=== PATIENT | male | born 1985 | race Caucasian/White ===

== ENCOUNTER 2019-02-03 05:33 | Inpatient (IN) | payer MEDICAID ==
[2019-02-03] MEDS ORDERED: Acetaminophen 500 MG Tab PO ONE (05:45)
[2019-02-03] MEDS ORDERED: Scopolamine 1.5 MG Transdermal Patch TOP SCH (05:45)
[2019-02-03] MEDS ORDERED: Gabapentin 300 MG Cap PO ONE (05:45)
[2019-02-03] MEDS ORDERED: Celecoxib 200 MG Cap PO ONE (05:45)
[2019-02-03] MEDS ORDERED: cefOXitin 2 GM Vial ONE (06:41)
[2019-02-03] MEDS ORDERED: Dextrose 5%-Lactated Ringers 1,000 ML IV SCH (06:45)
[2019-02-03] MEDS ORDERED: Succinylcholine 200 MG/10 ML MDV ONE (07:00)
[2019-02-03] MEDS ORDERED: Rocuronium 50 MG/5 ML Vial ONE ×2 (07:00→07:52)
[2019-02-03] MEDS ORDERED: Dexamethasone 4 MG/ML SDV ONE (07:00)
[2019-02-03] MEDS ORDERED: Neostigmine Methylsulfate 1 MG/ML 5 ML Syringe ONE (07:00)
[2019-02-03] MEDS ORDERED: Glycopyrrolate 0.2 MG/ML 5 ML MDV ONE (07:00)
[2019-02-03] MEDS ORDERED: Ondansetron 4 MG/2 ML SDV ONE (07:00)
[2019-02-03] MEDS ORDERED: Propofol 200 MG/20 ML SDV ONE (07:00)
[2019-02-03] MEDS ORDERED: Ketamine 500 MG/5 ML MDV IV SCH (08:00)
[2019-02-03] MEDS ORDERED: Lidocaine 0.4%/D5W 2 GM/500 ML BAG IV SCH (08:00)
[2019-02-03] MEDS ORDERED: Lidocaine 2% 100 MG/5 ML Syringe IVPUSH SCH (08:00)
[2019-02-03] MEDS ORDERED: Ketamine 50 MG in Sodium Chloride 0.9% 49.5 ML IV SCH (08:00)
[2019-02-03] MEDS: cefOXitin 2 GM in Sodium Chloride 0.9% 50 ML IV ONE ×2 (08:07→10:11)
[2019-02-03] MEDS ORDERED: fentaNYL 100 MCG/2 ML SDV IVPUSH ONE ×2 (09:27→09:46)
[2019-02-03] MEDS ORDERED: hydrOXYzine HCl 100 MG/2 ML SDV IM ONE (09:27)
[2019-02-03] MEDS ORDERED: Insulin Lispro 100 Unit/ML 3 ML KwikPen SUBCUT ONE (09:43)
[2019-02-03] MEDS ORDERED: HYDROmorphone 0.5 MG/0.5 ML Syringe IVPUSH PRN (10:47)
[2019-02-03] MEDS: HYDROmorphone 1 MG/ML Syringe IV PRN ×6 (10:51→22:40)
[2019-02-03] MEDS ORDERED: Glucagon,Human Recombinant 1 MG Vial IM PRN (10:54)
[2019-02-03] MEDS ORDERED: diphenhydrAMINE 50 MG/ML SDV IVPUSH PRN (10:54)
[2019-02-03] MEDS ORDERED: Metoclopramide 10 MG/2 ML SDV IVPUSH PRN (10:54)
[2019-02-03] MEDS ORDERED: 50% Dextrose in Water 50 ML Syringe IVPUSH PRN (10:54)
[2019-02-03] MEDS ORDERED: Labetalol 20 MG/4 ML Syringe IVPUSH PRN (10:54)
[2019-02-03] MEDS ORDERED: Ondansetron 4 MG/2 ML SDV IVPUSH PRN (10:54)
[2019-02-03] MEDS: hydrOXYzine HCl 100 MG/2 ML SDV IM PRN (12:05)
[2019-02-03] MEDS: Dextrose 5%-Lactated Ringers 1,000 ML IV SCH (13:26)
[2019-02-03] MEDS: Lactated Ringers 1,000 ML IV SCH (13:27)
[2019-02-03] MEDS: cefOXitin 2 GM in Sodium Chloride 0.9% 50 ML IV SCH ×2 (13:29→19:13)
[2019-02-03] MEDS: Gabapentin 250 MG/5 ML Solution ML 470 ML Bottle PO SCH ×2 (13:33→20:03)
[2019-02-03] MEDS: Pantoprazole 40 MG Vial IVPUSH SCH (13:34)
[2019-02-03] MEDS: Acetaminophen 325 MG Tab PO SCH ×2 (13:41→19:16)
[2019-02-03] MEDS ORDERED: MVI, Adult with Vitamin K 10 ML, Thiamine 200 MG, Chromium/Copper/Mang/Selen/Zn 1 ML in... IV SCH ×4 (16:00)
[2019-02-03] MEDS: Insulin Lispro 100 Unit/ML 3 ML KwikPen SUBCUT PRN ×2 (16:15→21:22)
[2019-02-03] MEDS: Heparin Sodium 5,000 Units/ML Vial SUBCUT SCH (16:18)
[2019-02-04] MEDS: HYDROmorphone 1 MG/ML Syringe IV PRN ×2 (00:31→05:01)
[2019-02-04] MEDS: Acetaminophen 325 MG Tab PO SCH ×4 (02:07→19:34)
[2019-02-04] MEDS: cefOXitin 2 GM in Sodium Chloride 0.9% 50 ML IV SCH ×2 (02:07→08:20)
[2019-02-04] MEDS ORDERED: Iopamidol 612 MG/ML 50 ML SDV PO STA (04:01)
[2019-02-04] MEDS: Heparin Sodium 5,000 Units/ML Vial SUBCUT SCH ×2 (04:06→16:46)
[2019-02-04] MEDS: Dextrose 5%-Lactated Ringers 1,000 ML IV SCH (04:06)
[2019-02-04] MEDS: Lactated Ringers 1,000 ML IV SCH (04:06)
[2019-02-04] MEDS: Insulin Lispro 100 Unit/ML 3 ML KwikPen SUBCUT PRN ×4 (05:01→21:52)
--- NOTE | 2019-02-04 05:44 | CRLCR ---
Indication: Danny-en-Y leak check. Technique: Abdomen 2 view Comparison: None Findings/Impression: Two submitted images of the abdomen. On the initial image, contrast is present within the distal esophagus and proximal small bowel. Upper abdominal Charles-Benitez drain present. On the 2nd image there is progression into the proximal small bowel without definite extravasation. Dictated by Troy Hyman MD @ Feb 04 2019 5:40AM Signed by Dr. Troy Hyman @ Feb 04 2019 5:41AM
[2019-02-04] MEDS ORDERED: Ondansetron 4 MG Tab.DIS PO PRN (07:34)
[2019-02-04] MEDS ORDERED: Lactated Ringers 1,000 ML IV SCH (07:45)
[2019-02-04] MEDS: HYDROmorphone 2 MG Tab PO PRN ×3 (08:19→19:48)
[2019-02-04] MEDS: Celecoxib 200 MG Cap PO SCH (08:19)
[2019-02-04] MEDS ORDERED: Non-Formulary Medication 1 Each (Amlodipine [Norvasc] 2.5 MG) PO SCH (09:00)
[2019-02-04] MEDS ORDERED: Metoprolol Succinate 25 MG Tab.ER PO SCH (09:00)
[2019-02-04] MEDS: amLODIPine 5 MG Tab PO SCH (09:32)
[2019-02-04] MEDS: Lisinopril 5 MG Tab PO SCH (09:33)
[2019-02-04] MEDS: Metoprolol Succinate 25 MG Tab.ER PO SCH ×2 (09:34→20:34)
[2019-02-04] MEDS: SCOPOLAMINE PATCH CHECK TOP SCH (09:39)
[2019-02-04] MEDS: Gabapentin 250 MG/5 ML Solution ML 470 ML Bottle PO SCH ×3 (09:41→20:32)
--- NOTE | 2019-02-04 10:39 | PN ---
DATE OF SERVICE: 02/04/2019 SUBJECTIVE: Gen is postoperative day #1. His pain is controlled. He has been up ambulating. Upper GI this morning was normal. Blood sugars have been 325, 328, and 294. Oral intake 920 and urine output 5600. ELISABETH drain put out 100 mL of a light pink drainage. REVIEW OF SYSTEMS: Remainder of review of systems negative for any pertinent positives and negatives. OBJECTIVE: GENERAL: Gen Owen is a 33-year-old male. He is alert and orientated. VITAL SIGNS: TPR is 96.8, 112, 18, blood pressure 139/82. HEENT: Negative. NECK: Supple. HEART: Regular rate and rhythm. LUNGS: Clear. ABDOMEN: Dressings dry and intact. Abdominal binder is on. EXTREMITIES: Without peripheral edema. ASSESSMENT: Laparoscopic Danny-en-Y gastric bypass surgery, liver biopsy, repair of diaphragmatic hernia, and excision of mediastinal lipoma for morbid obesity, hepatomegaly, diaphragmatic hernia, and mediastinal lipoma. Date of surgery: 02/03/2019. PLAN: 1. Dressing off, november shower. 2. Discontinue D5 LR. 3. Change IV solution to lactated Ringer's at 60 mL per hour. 4. Step 2 gastric bypass diet. 5. Dilaudid 2 mg p.o. q.6 hours p.r.n. severe pain. 6. Norvasc 2.5 mg p.o. daily. 7. Lisinopril 5 mg p.o. daily. 8. Zofran ODT 4 mg every 4 hours p.r.n. nausea, vomiting. 9. Metoprolol 12.5 mg p.o. b.i.d. 10.Good pulmonary toilet. 11.We will evaluate p.r.n. or in a.m. Chiara Lopez PA-C /[id number]
[2019-02-04] MEDS: hydrOXYzine HCl 100 MG/2 ML SDV IM PRN (10:59)
[2019-02-04] MEDS: Pantoprazole 40 MG Vial IVPUSH SCH (13:48)
[2019-02-04] MEDS ORDERED: MVI, Adult with Vitamin K 10 ML, Thiamine 200 MG, Chromium/Copper/Mang/Selen/Zn 1 ML in... IV SCH ×4 (16:00)
[2019-02-05] MEDS: HYDROmorphone 2 MG Tab PO PRN ×2 (01:18→07:49)
[2019-02-05] MEDS: Acetaminophen 325 MG Tab PO SCH ×2 (01:18→07:39)
[2019-02-05] MEDS: Heparin Sodium 5,000 Units/ML Vial SUBCUT SCH (04:37)
[2019-02-05] MEDS: Insulin Lispro 100 Unit/ML 3 ML KwikPen SUBCUT PRN ×2 (04:37→09:53)
[2019-02-05] MEDS: Celecoxib 200 MG Cap PO SCH (07:51)
[2019-02-05] MEDS: Gabapentin 250 MG/5 ML Solution ML 470 ML Bottle PO SCH (08:36)
[2019-02-05] MEDS: SCOPOLAMINE PATCH CHECK TOP SCH (08:38)
[2019-02-05] MEDS: Metoprolol Succinate 25 MG Tab.ER PO SCH (08:43)
[2019-02-05] MEDS: amLODIPine 5 MG Tab PO SCH (08:47)
[2019-02-05] MEDS: Lisinopril 5 MG Tab PO SCH (08:47)
[2019-02-05] MEDS ORDERED: Cyanocobalamin (Vitamin B12) 1,000 MCG/ML SDV IM ONE (09:00)
[2019-02-05] MEDS ORDERED: Pantoprazole 40 MG Delayed-Release Granules 1 Packet PO SCH (11:30)
--- NOTE | 2019-02-05 14:06 | DISCH ---
ADMISSION DIAGNOSES: 1. Morbid obesity. 2. BMI 55. 3. Uncontrolled type 2 diabetes mellitus. 4. Hypertension. 5. Panic disorder. 6. Sleep apnea with use of CPAP. 7. Maladaptive health behaviors affecting medical condition. 8. History of back surgery. DISCHARGE DIAGNOSES: Laparoscopic Danny-en-Y gastric bypass surgery, liver biopsy, repair of diaphragmatic hernia, and excision of mediastinal lipoma for morbid obesity, hepatomegaly, diaphragmatic hernia, and mediastinal lipoma. Date of surgery: 02/03/2019. HISTORY: Gen Owen is a 33-year-old male with longstanding history of morbid obesity and increasing comorbidities. After preoperative evaluation and discussion of possible risks and possible complications, he wished to proceed with surgical procedure. HOSPITAL COURSE: Gen had his surgery on 02/03/2019. He had no operative complications. On postoperative day #1, his upper GI was normal. Blood sugars were in low 300s and high 200s. His IV solution was changed from D5 LR to plain LR. He was started on a step 2 gastric bypass diet with no cereal. He received dietary consultation. On postop day #2, vital signs were stable. His activity was good. Blood sugars have come down to 206. Oral intake adequate, and vital signs were stable. He was able to be discharged to home. PHYSICAL EXAMINATION: GENERAL: Gen Owen is a 33-year-old male. VITAL SIGNS: Height 5 feet 10 inches, weight is 384 pounds. BMI is 55. TPR 96.4, 91, 18, blood pressure 121/57. HEENT: Negative. NECK: Supple. HEART: Regular rate and rhythm. LUNGS: Clear. ABDOMEN: Sutures intact. Incisions look good. 4 x 4 over ELISABETH drain site. Abdominal binder is on. EXTREMITIES: Without peripheral edema. DISPOSITION: Discharged to home. CONDITION: Stable and improving. FOLLOWUP APPOINTMENT: Chiara Lopez PA-C, on 02/13/2019 at 10 a.m. HOME MEDICATIONS: 1. Tylenol 650 mg q.6 hours p.r.n. pain. 2. Celebrex 200 mg p.o. daily #14. 3. Toprol-XL 12.5 mg oral twice daily, #60, 11 refills. 4. Zofran ODT 4 mg every 4 hours p.r.n. nausea, #30. He is to resume his home medication; 1. Lisinopril 5 mg oral daily. 2. Amlodipine/Norvasc 2.5 mg oral daily. 3. Discontinue taking Levemir. 4. Metoprolol-XL 25 mg oral daily. DIET: Step 2 gastric bypass diet for 2 weeks until 02/17/2019. ACTIVITY: No lifting over 10 pounds for 2 weeks. Other activity: Walk at least 6 times a day inside your home. Driving: Do not drive for one week. Shower/bathing; may shower. Keep site clean and dry. Wear abdominal binder for 2 weeks and then as tolerated. SPECIAL INSTRUCTIONS: 1. Use incentive spirometer 10 times every hour while awake for 1 week. 2. Check blood sugars 4 times a day and call the clinic tomorrow with results. Call .
--- NOTE | 2019-02-10 10:45 | OR ---
DATE OF PROCEDURE: 02/03/2019 SURGEON: Zuhair Lucas MD PREOPERATIVE DIAGNOSIS: Morbid obesity. POSTOPERATIVE DIAGNOSES: 1. Morbid obesity. 2. Marked hepatomegaly. 3. Paraesophageal diaphragmatic hernia. 4. Mediastinal lipoma. OPERATIVE PROCEDURES: 1. Laparoscopic Danny-en-Y gastric bypass with long limb gastroenterostomy (24018). 2. Vamsi-Cut needle liver biopsy (08265). 3. Repair of paraesophageal diaphragmatic hernia (11451). 4. Excision of mediastinal lipoma (13517). ANESTHESIA: General. CARBON BRUSHER ASSEMBLER: Chiara Lopez PA-C. INDICATIONS FOR PROCEDURE: This is a 33-year-old male, presenting with longstanding morbid obesity with increasingly significant comorbidities. After preoperative evaluation and discussion, he wished to proceed with a gastric bypass procedure. Potential risks including bleeding, infection, leaks from various GI tract closures, possible bowel obstruction over time, as well as possibility of cardiopulmonary, septic, or hemorrhagic complications leading to were all discussed, and the patient wishes to proceed. DETAILS OF PROCEDURE: The patient was taken to the operating room and placed in a supine position. After general endotracheal anesthesia was induced, he was converted to a lithotomy position and the abdomen prepped and draped. At 15 cm inferior, 5 cm left of xiphoid process, a transverse incision was made, and the peritoneal cavity entered under direct vision with an Optiview trocar, inflated to 15 mmHg pressure of CO2. Laparoscope was then reinserted. No underlying trocar insertion site injuries were seen. Following this, 5 additional trocars were placed across the upper and mid abdomen. Bilateral subcostal transversus abdominis plane block was placed. The upper abdomen was examined. The patient was noted to have marked hepatomegaly, and therefore, Vamsi-Cut needle biopsy was obtained from left lobe of liver. Minimal bleeding from the biopsy site was controlled with electrocautery. The omentum was then divided in the midline up to the level of the transverse colon. This allowed identification of small bowel to the ligament of Treitz. Small bowel was then traced out 150 cm distal to that point, where it was divided transversely with a VANDANA stapler. Small bowel was then traced out additional 150 cm where the [id number] enteroenterostomy was accomplished with internal firing of the Endo-VANDANA 60 mm stapler. The common opening was closed transversely with the same stapler and the angles anastomosed and mesenteric defect approximated with some 0 Ethibond stitch, along with 4 mL of fibrin sealant. Divided end of the Danny limb was then from the mesentery for a few centimeters, which allowed an antecolic position of the Danny limb up to the level of the gastroesophageal junction without tension. At this point, the liver was retracted anteriorly. The patient was noted to have moderate- sized paraesophageal diaphragmatic hernia with prolapse of the portion of the gastric fundus and perigastric fat in a plane anterior and slightly to the left of the course of the esophagus. This was reduced and the peritoneum overlying divided and reflected downward. During the course of the dissection, a mediastinal lipoma was then encountered, which was excised in order to facilitate more adequate crural repair. The latter was then accomplished anteriorly with series of 0 Ethibond sutures reinforced with PTFE pledgets. The anvil of a 25 mm EEA stapler was then attached to [place] sump tube, brought down through the mouth, taken out a small opening in the gastric pouch, allowing the anvil likewise to be pulled down to within the gastric pouch. Divided end of the Danny limb was then opened and main body of the EEA stapler passed several centimeters into the lumen of the small bowel, brought up the anvil and united with it, thus creating the gastrojejunostomy. Upon removal of the stapler, double donuts of mucosa were noted within it. Small bowel was closed off with a vascular staple line. Gastrojejunostomy was reinforced using 3-0 Vicryl seromuscular stitch, along with 4 mL of fibrin sealant. The leak test was accomplished with injection of 120 mL of air in the gastric pouch while it was submerged with cefoxitin-containing saline solution. No leaks were identified. A single Charles-Benitez drain was then taken out through the left lateral trocar site and positioned adjacent to the gastrojejunostomy from there up into the splenic fossa. The trocars were then removed. The peritoneal cavity deflated. Incision was closed with 4-0 Vicryl skin stitch, which was also used to affix the drain, and the patient taken to the recovery room in satisfactory condition. Physician switchboard operator assistant, Chiara Lopez, played an essential role in assisting in this case helping to position the patient, retract structures as needed, as well as suturing and cutting sutures as indicated. Her presence improved patient safety and decreased operative time. Zuhair Lucas MD /[id number]
== END 2019-02-05 12:38 | disposition home or self-care (01) | DRG 621 ==
LOC: JP.SDSSCHI 05:33 → JP.SDS 05:33 → EDSTATUS 08:30 → JP.MS 09:30
PROVIDERS: ADMIT Surgery; ATTEND Surgery
PROC: 0D164ZL Bypass Stomach to Transverse Colon, Percutaneous Endoscopic Approach (ICD-10-PCS; principal; 2019-02-03)
PROC: 0FB24ZX Excision of Left Lobe Liver, Percutaneous Endoscopic Approach, Diagnostic (ICD-10-PCS; 2019-02-03)
PROC: 0BQT4ZZ Repair Diaphragm, Percutaneous Endoscopic Approach (ICD-10-PCS; 2019-02-03)
PROC: 0DB64ZZ Excision of Stomach, Percutaneous Endoscopic Approach (ICD-10-PCS; 2019-02-03)
PROC: 0JB63ZZ Excision of Chest Subcutaneous Tissue and Fascia, Percutaneous Approach (ICD-10-PCS; 2019-02-03)
DX: E66.01 Morbid (severe) obesity due to excess calories (principal); Z68.43 Body mass index [BMI] 50.0-59.9, adult; R16.0 Hepatomegaly, not elsewhere classified; K44.9 Diaphragmatic hernia without obstruction or gangrene; D17.9 Benign lipomatous neoplasm, unspecified; E11.65 Type 2 diabetes mellitus with hyperglycemia; I10 Essential (primary) hypertension; F41.0 Panic disorder [episodic paroxysmal anxiety]; G47.30 Sleep apnea, unspecified; R46.89 Other symptoms and signs involving appearance and behavior
CPT/HCPCS: 36415; 74240; 82962; 86850; 86900; 86901; 88304; 88307; 88313; A9270-GY; C9113; J0171; J0330; J0694; J1100; J1170; J1644; J1815; J1815-GY; J2001; J2405; J2704; J2710; J2795; J3010; J3410; J3411; J3420; J3490; J7030; J7042; J7050; J7120; Q9967

== ENCOUNTER 2019-05-26 06:46 | Day surgery (SDC) | payer MEDICAID ==
[2019-05-26] MEDS ORDERED: Bupivacaine 0.5%/EPINEPHrine 1:200,000 50 ML MDV ONE (07:03)
[2019-05-26] MEDS ORDERED: Acetaminophen 500 MG Tab PO ONE (07:30)
[2019-05-26] MEDS ORDERED: Lactated Ringers 1,000 ML IV ONE (07:45)
[2019-05-26] MEDS: Dextrose 5%-Lactated Ringers 1,000 ML IV SCH ×2 (07:47→13:48)
[2019-05-26] MEDS ORDERED: Cyanocobalamin (Vitamin B12) 1,000 MCG/ML SDV IM ONE (08:00)
[2019-05-26] MEDS ORDERED: Ketamine 500 MG/5 ML MDV IV SCH (08:45)
[2019-05-26] MEDS ORDERED: Ketamine 50 MG in Sodium Chloride 0.9% 49.5 ML IV SCH (08:45)
[2019-05-26] MEDS ORDERED: MVI, Adult with Vitamin K 10 ML, Thiamine 200 MG, Chromium/Copper/Mang/Selen/Zn 1 ML in... IV ONE ×4 (08:45)
[2019-05-26] MEDS ORDERED: Glycopyrrolate 0.2 MG/ML 2 ML SDV IVPUSH ONE (09:00)
[2019-05-26] MEDS ORDERED: Rocuronium 50 MG/5 ML Vial ONE (09:13)
[2019-05-26] MEDS ORDERED: Propofol 200 MG/20 ML SDV ONE (09:13)
[2019-05-26] MEDS ORDERED: Succinylcholine 200 MG/10 ML MDV ONE (09:13)
[2019-05-26] MEDS ORDERED: fentaNYL 250 MCG/5 ML SDV ONE ×2 (09:13→10:16)
[2019-05-26] MEDS ORDERED: Ondansetron 4 MG/2 ML SDV ONE (09:13)
[2019-05-26] MEDS ORDERED: Glycopyrrolate 0.2 MG/ML 5 ML MDV ONE (09:13)
[2019-05-26] MEDS ORDERED: Neostigmine Methylsulfate 1 MG/ML 5 ML Syringe ONE (09:13)
[2019-05-26] MEDS ORDERED: Dexamethasone 4 MG/ML SDV ONE (09:13)
[2019-05-26] MEDS: cefOXitin 2 GM in Sodium Chloride 0.9% 50 ML IV ONE ×2 (09:57→14:25)
[2019-05-26] MEDS ORDERED: Lactated Ringers 1,000 ML ONE (10:15)
[2019-05-26] MEDS ORDERED: fentaNYL 100 MCG/2 ML SDV IVPUSH ONE (11:02)
[2019-05-26] MEDS ORDERED: hydrOXYzine HCl 100 MG/2 ML SDV IM ONE (11:03)
[2019-05-26] MEDS ORDERED: HYDROmorphone 0.5 MG/0.5 ML Syringe IVPUSH PRN (12:12)
[2019-05-26] MEDS ORDERED: Ondansetron 4 MG/2 ML SDV IVPUSH PRN (12:12)
[2019-05-26] MEDS: HYDROmorphone 1 MG/ML Syringe IV PRN ×3 (13:46→19:22)
[2019-05-26] MEDS: Acetaminophen/HYDROcodone 325-5 MG Tab PO PRN ×3 (14:23→22:15)
[2019-05-26] MEDS ORDERED: Pantoprazole 40 MG Vial IV SCH (16:00)
[2019-05-26] MEDS: cefOXitin 2 GM in Sodium Chloride 0.9% 50 ML IV SCH ×2 (16:27→22:16)
[2019-05-27] MEDS: HYDROmorphone 1 MG/ML Syringe IV PRN (00:05)
[2019-05-27] MEDS: Dextrose 5%-Lactated Ringers 1,000 ML IV SCH (00:06)
[2019-05-27] MEDS: cefOXitin 2 GM in Sodium Chloride 0.9% 50 ML IV SCH ×2 (04:52→09:38)
[2019-05-27] MEDS: Acetaminophen/HYDROcodone 325-5 MG Tab PO PRN ×3 (05:00→12:33)
[2019-05-27] MEDS ORDERED: Metoprolol Succinate 25 MG Tab.ER PO SCH (09:00)
[2019-05-27] MEDS ORDERED: Lisinopril 20 MG Tab PO SCH (09:00)
--- NOTE | 2019-06-06 12:28 | OR ---
DATE OF PROCEDURE: 05/26/2019 SURGEON: Zuhair Lucas MD PREOPERATIVE DIAGNOSIS: Upper abdominal pain associated with cholelithiasis. POSTOPERATIVE DIAGNOSES: 1. Upper gastrointestinal endoscopy showing no significant inflammation or stricturing at the Danny-en-Y gastric bypass site. 2. Chronic cholecystitis and cholelithiasis. PROCEDURES: 1. Upper gastrointestinal endoscopy (65890). 2. Laparoscopic cholecystectomy (47913). ANESTHESIA: General. GASTROENTEROLOGY MANAGER: Chiara Lopez PA-C INDICATIONS FOR PROCEDURE: A 34-year-old male presenting with ongoing upper abdominal pain, some of this pain is more epigastric in nature and he also has attacks consistent with biliary colic with imaging showing cholelithiasis. The plan was to proceed with an upper GI endoscopy with biopsies and/or dilation along with a laparoscopic cholecystectomy. Potential risks of the procedure including bleeding, infection, injury to underlying viscera, possible migration of stones into the common bile duct requiring additional procedures for correction, as well as possibility of some incomplete relief of symptoms following the procedures were gone over, and the patient wishes to proceed. DETAILS OF PROCEDURE: The patient was taken to the operating room and placed in a supine position. After general endotracheal anesthesia was induced, initially the upper GI endoscope was passed orally through the length of the esophagus, into the gastric pouch, and from there through the gastrojejunostomy roughly 20 cm in the Danny Limb. There was no evidence of any upper GI pathology per se with no areas of inflammation or stricturing along the course of the examination. Scope was then withdrawn and the above findings reconfirmed. At this point, the abdomen was prepped and draped. A transverse epigastric incision was made and peritoneal cavity entered under direct vision with an Optiview trocar inflated to 15 mmHg pressure with CO2. Laparoscope was reinserted. No underlying trocar insertion site injuries were seen. Following this, a 12 mm subumbilical trocar was placed along with 5 mm epigastric trocar and the camera port brought out to the umbilical port site. The patient was noted to have a thick-walled, somewhat salazar-appearing gallbladder consistent with chronic cholecystitis. There were some omental adhesions that were taken down with Harmonic scalpel. Dissection was then continued around the gallbladder neck and continued around the gallbladder neck and cystic duct junction. Once that area was well delineated along with adjacent cystic artery, both structures were clipped 3 times proximally, once distally and then gallbladder and cystic duct junction divided along with the cystic artery. Both structures were clipped 3 times proximally, once distally, and then divided. The gallbladder was then dissected off the gallbladder bed using Harmonic scalpel and was delivered through the epigastric trocar site and noted to contain multiple stones. The area of dissection was inspected. No bleeding or bile leaks were seen. A drain was felt not to be necessary. The trocars were inspected and removed. Fascia at the 12 mm site was closed with 0 Vicryl stitch and skin with 4-0 Vicryl stitch and a dressing was applied. The patient was taken to the recovery room in satisfactory condition. Of note, after initial placement of trocar, bilateral transversus abdominis plane blocks have been placed and the incisions were then anesthetized with 0.5% Marcaine at the end of the procedure as well. Physician laundry assistant Chiara Lopez played an essential role in assisting in this case, helping to position the patient, retract structures as needed, as well as suturing and cutting sutures when indicated. Her presence improved patient safety and decreased operative time. Zuhair Lucas MD Job #: [id number]
== END 2019-05-27 13:24 | disposition home or self-care (01) ==
LOC: JP.SDS 06:46 → JP.MS 10:20 → JP.SDS 05-27 13:24
PROVIDERS: ATTEND Surgery
DX: K80.10 Calculus of gallbladder with chronic cholecystitis without obstruction (principal); E11.9 Type 2 diabetes mellitus without complications; Z98.84 Bariatric surgery status; Z79.899 Other long term (current) drug therapy
CPT/HCPCS: 36415; 43235; 47562; 82247; 84075; 85027; 88304; A9270; C9113; J0171; J0330; J0694; J1100; J1170; J2405; J2704; J2710; J2795; J3010; J3410; J3490; J7042; J7050; J7120